=== PATIENT | female | born 1985 | race African-American/Black ===

== ENCOUNTER 2016-11-09 20:20 | Emergency (ER) | payer MEDICAID ==
[~2016-11-09] VITALS: Ht 162.6 cm; Wt 56.7 kg
[~2016-11-09 20:20] MED LIST: ALBU2.5V13 IH; AZIT500T5 PO; CALC0.5C6 PO; CALC667C4 PO; D METHORPHAN HB PO; FOLI1TAB63 PO; LOSA50TA20 PO; NIFE90TA34 PO; PROMETH HCL PO; VIT1TABL86 PO
[2016-11-10 03:12] VITALS: BP 207/138
== END 2016-11-10 03:31 | disposition home or self-care (01) ==
LOC: ER 22:19
DX: M79.601 Pain in right arm (principal); Z99.2 Dependence on renal dialysis; Z79.899 Other long term (current) drug therapy; Z88.6 Allergy status to analgesic agent; Z88.1 Allergy status to other antibiotic agents; I12.9 Hypertensive chronic kidney disease with stage 1 through stage 4 chronic kidney disease, or unspecified chronic kidney disease; N18.9 Chronic kidney disease, unspecified
CPT/HCPCS: 93971; 99284; Z7610

== ENCOUNTER 2016-12-13 06:52 | Emergency (ER) | payer MEDICAID ==
[~2016-12-13] VITALS: Ht 160 cm; Wt 56.1 kg
[2016-12-13] MEDS ORDERED: NIFEDIPINE XL 90MG TAB PO ONE (08:00)
[2016-12-13] MEDS ORDERED: CLONIDINE 0.1MG TABLET PO ONE (08:00)
[2016-12-13] MEDS ORDERED: LOSARTAN POTASSIUM 100 MG TABLET PO ONE (08:00)
[2016-12-13 08:10] LABS: EOSINOPHILS % 3.2 % (0.0-5.0); HEMATOCRIT. 28.4 % (36.0-48.0); HEMOGLOBIN. 9.8 g/dL (12.0-16.0); MEAN CORPUSCULAR HEMOGLOBIN 29.7 pg (28.0-32.0); MEAN CORPUSCULAR HGB CONC 34.6 g/dL (31.0-37.0); MEAN CORPUSCULAR VOLUME 85.9 fL (81.0-99.0); MEAN PLATELET VOLUME 6.9 fl (7.4-10.4); MONOCYTES % 6.6 % (2.0-8.0); NEUTROPHILS % 72.2 % (40.0-76.0); PLATELET 89 x1000/uL (130-400); RED CELL DISTRIBUTION WIDTH 18.7 % (11.6-14.6); WHITE BLOOD COUNT 5.3 x1000/uL (4.5-11.0)
[2016-12-13 08:20] LABS: CHLORIDE 100 mEq/L (98-107); INDEX HEMOLYSI 1 (1-3); INDEX ICTERIC 1 (1-4); INDEX LIPEMIC 1 (1-3)
[2016-12-13 08:28] LABS: ALANINE AMINOTRANSFERASE 16 IU/L (13-61); ALBUMIN 3.4 g/dL (3.4-5.0); ANION GAP 12; CALCIUM 8.4 mg/dL (8.5-10.1); CARBON DIOXIDE 32 mEq/L (21-32); UREA NITROGEN BLOOD 16 mg/dL (7-21); eGFR 7 mL/min (>60)
[2016-12-13] MEDS ORDERED: NIFEDIPINE XL 90MG TAB PO NR (08:30)
[2016-12-13] MEDS: LOSARTAN POTASSIUM 100 MG TABLET PO NR ×2 (08:33→08:34)
[2016-12-13 09:30] VITALS: BP 196/136
== END 2016-12-13 11:15 | disposition home or self-care (01) ==
LOC: ER 07:27
DX: I12.0 Hypertensive chronic kidney disease with stage 5 chronic kidney disease or end stage renal disease (principal); N18.6 End stage renal disease; Z99.2 Dependence on renal dialysis; Z90.49 Acquired absence of other specified parts of digestive tract; Z98.890 Other specified postprocedural states; Z88.6 Allergy status to analgesic agent; Z88.8 Allergy status to other drugs, medicaments and biological substances; Z88.1 Allergy status to other antibiotic agents
CPT/HCPCS: 36415; 71010; 80053; 85025; 99285; Z7610

== ENCOUNTER 2016-12-21 22:59 | Emergency (ER) | payer MEDICAID ==
[~2016-12-21] VITALS: Ht 160 cm; Wt 56.0 kg
[2016-12-22 01:16] LABS: BASOPHILS % 0.6 % (0.0-2.0); EOSINOPHILS % 2.9 % (0.0-5.0); HEMATOCRIT. 38.2 % (36.0-48.0); HEMOGLOBIN. 12.9 g/dL (12.0-16.0); LYMPHOCYTES % 18.7 % (20.0-50.0); MEAN CORPUSCULAR HEMOGLOBIN 29.7 pg (28.0-32.0); MEAN CORPUSCULAR HGB CONC 33.8 g/dL (31.0-37.0); MEAN CORPUSCULAR VOLUME 87.9 fL (81.0-99.0); MEAN PLATELET VOLUME 6.3 fl (7.4-10.4); NEUTROPHILS % 71.8 % (40.0-76.0); PLATELET 191 x1000/uL (130-400); RED BLOOD CELL COUNT 4.34 mill/uL (4.2-5.4); RED CELL DISTRIBUTION WIDTH 19.8 % (11.6-14.6)
[2016-12-22 01:34] LABS: ALANINE AMINOTRANSFERASE 13 IU/L (13-61); ALBUMIN 3.9 g/dL (3.4-5.0); ANION GAP 14; CALCIUM 9.3 mg/dL (8.5-10.1); CARBON DIOXIDE 31 mEq/L (21-32); CHLORIDE 94 mEq/L (98-107); INDEX HEMOLYSI 2 (1-3); INDEX ICTERIC 1 (1-4); INDEX LIPEMIC 1 (1-3); TROPONIN I < 0.02 ng/mL (0.00-0.04); UREA NITROGEN BLOOD 27 mg/dL (7-21); eGFR 4 mL/min (>60)
[2016-12-22 01:46] LABS: NT PRO B-TYPE NATRIURETIC PEP 81153 pg/mL (5-125)
[2016-12-22 02:58] VITALS: BP 189/111
== END 2016-12-22 03:05 | disposition home or self-care (01) ==
LOC: ER 23:01
DX: R07.89 Other chest pain (principal); I12.0 Hypertensive chronic kidney disease with stage 5 chronic kidney disease or end stage renal disease; N18.6 End stage renal disease; Z99.2 Dependence on renal dialysis; Z88.6 Allergy status to analgesic agent; Z79.899 Other long term (current) drug therapy
CPT/HCPCS: 36415; 71010; 80053; 83880; 84484; 85025; 93005; 93970; 99285; Z7610

== ENCOUNTER 2017-02-20 08:43 | Emergency (ER) | payer MEDICAID ==
[~2017-02-20] VITALS: Ht 162.6 cm; Wt 60.0 kg
[~2017-02-20 08:43] MED LIST changes: -AZIT500T5 PO; +CALC0.5C10 PO; -CALC0.5C6 PO; +CEPH-569 PO; +DILT180C69 PO; +KEPP500 PO; +LOSA100T14 PO; -LOSA50TA20 PO; -NIFE90TA34 PO
[2017-02-20] MEDS ORDERED: LEVETIRACETAM 1,000 MG in SODIUM CHLORIDE 0.9% 100 ML IV ONE (09:00)
[2017-02-20] MEDS ORDERED: NIFE90TA43 (09:10)
[2017-02-20] MEDS ORDERED: CLON0.1T (09:10)
[2017-02-20 09:11] LABS: BASOPHILS % 0.4 % (0.0-2.0); EOSINOPHILS % 0.5 % (0.0-5.0); HEMATOCRIT. 42.3 % (36.0-48.0); HEMOGLOBIN. 14.1 g/dL (12.0-16.0); LYMPHOCYTES % 9.9 % (20.0-50.0); MEAN CORPUSCULAR HEMOGLOBIN 28.7 pg (28.0-32.0); MEAN CORPUSCULAR VOLUME 86.3 fL (81.0-99.0); MEAN PLATELET VOLUME 7.4 fl (7.4-10.4); MONOCYTES % 6.7 % (2.0-8.0); NEUTROPHILS % 82.5 % (40.0-76.0); PLATELET 167 x1000/uL (130-400); RED BLOOD CELL COUNT 4.91 mill/uL (4.2-5.4); RED CELL DISTRIBUTION WIDTH 17.8 % (11.6-14.6)
[2017-02-20] MEDS ORDERED: DILTIAZEM HCL 180MG CAPSULE CD 24HR PO ONE (09:15)
[2017-02-20 09:27] LABS: CARBON DIOXIDE 29 mEq/L (21-32); CHLORIDE 99 mEq/L (98-107)
[2017-02-20 09:32] LABS: HCG SCREEN NEGATIVE
[2017-02-20] MEDS ORDERED: ACETAMINOPHEN WITH CODEINE 300/30MG TABLET PO ONE (10:30)
[2017-02-20 11:43] VITALS: BP 200/126
== END 2017-02-20 11:46 | disposition home or self-care (01) ==
LOC: ER 09:20
DX: S00.83XA Contusion of other part of head, initial encounter (principal); R56.9 Unspecified convulsions; I12.0 Hypertensive chronic kidney disease with stage 5 chronic kidney disease or end stage renal disease; F12.10 Cannabis abuse, uncomplicated; N18.6 End stage renal disease; Z99.2 Dependence on renal dialysis; Z88.6 Allergy status to analgesic agent; Z88.4 Allergy status to anesthetic agent; Z88.1 Allergy status to other antibiotic agents; W22.8XXA Striking against or struck by other objects, initial encounter; Y93.89 Activity, other specified; Y92.89 Other specified places as the place of occurrence of the external cause; Y99.8 Other external cause status
CPT/HCPCS: 36415; 70450; 70486; 80053; 84703; 85025; 96365; 99285; J1953; J7050

== ENCOUNTER 2017-03-04 10:37 | Emergency (ER) | payer MEDICAID ==
[~2017-03-04] VITALS: Ht 160 cm; Wt 56.0 kg
[~2017-03-04 10:37] MED LIST changes: +CLON0.1T; +NIFE90TA43
[2017-03-04] MEDS ORDERED: KETOROLAC 60MG/2ML VIAL IM STA (11:18)
[2017-03-04 12:10] LABS: BASOPHILS % 0.7 % (0.0-2.0); EOSINOPHILS % 2.5 % (0.0-5.0); HEMATOCRIT. 34.5 % (36.0-48.0); HEMOGLOBIN. 11.5 g/dL (12.0-16.0); LYMPHOCYTES % 16.8 % (20.0-50.0); MEAN CORPUSCULAR HEMOGLOBIN 28.9 pg (28.0-32.0); MEAN CORPUSCULAR VOLUME 86.6 fL (81.0-99.0); MEAN PLATELET VOLUME 7.7 fl (7.4-10.4); MONOCYTES % 7.1 % (2.0-8.0); NEUTROPHILS % 72.9 % (40.0-76.0); PLATELET 131 x1000/uL (130-400); RED BLOOD CELL COUNT 3.99 mill/uL (4.2-5.4); RED CELL DISTRIBUTION WIDTH 17.9 % (11.6-14.6)
[2017-03-04 12:25] LABS: HCG SCREEN NEGATIVE
[2017-03-04 15:07] VITALS: BP 171/63
== END 2017-03-04 15:08 | disposition home or self-care (01) ==
LOC: ER 12:18
DX: R10.9 Unspecified abdominal pain (principal); I12.0 Hypertensive chronic kidney disease with stage 5 chronic kidney disease or end stage renal disease; D53.9 Nutritional anemia, unspecified; N18.6 End stage renal disease; Z99.2 Dependence on renal dialysis; Z90.49 Acquired absence of other specified parts of digestive tract; Z88.6 Allergy status to analgesic agent; Z79.899 Other long term (current) drug therapy; Z88.1 Allergy status to other antibiotic agents
CPT/HCPCS: 36415; 71010; 74176; 80048; 84703; 85025; 99285

== ENCOUNTER 2017-04-20 03:28 | Inpatient (IN) | payer MEDICAID ==
[~2017-04-20] VITALS: Ht 162.6 cm; Wt 520.3 kg
[~2017-04-20 03:28] MED LIST changes: -CLON0.1T; +CLON0.1T PO; -NIFE90TA43; +NIFE90TA43 PO
[2017-04-20] MEDS ORDERED: FENTANYL CITRATE/PF 50MCG/ML 2ML VIAL IV ONE (04:00)
[2017-04-20] MEDS ORDERED: ASPIRIN 81MG TABLET PO ONE (04:00)
[2017-04-20] MEDS ORDERED: LABETALOL HCL 20MG/4ML CARPUJECT IV ONE (04:00)
[2017-04-20] MEDS ORDERED: LABETALOL 5MG/ML SYR 20 MG/4 ML SYRINGE IV SCH (04:17)
[2017-04-20] MEDS ORDERED: ONDANSETRON HCL 4MG/2ML VIAL IV STA ×2 (04:33→04:34)
[2017-04-20 04:42] LABS: HEMATOCRIT. 37.9 % (36.0-48.0); HEMOGLOBIN. 12.2 g/dL (12.0-16.0); MEAN CORPUSCULAR VOLUME 89.8 fL (81.0-99.0); MEAN PLATELET VOLUME 8.9 fl (7.4-10.4); PLATELET 240 x1000/uL (130-400); RED BLOOD CELL COUNT 4.22 mill/uL (4.2-5.4); RED CELL DISTRIBUTION WIDTH 21.8 % (11.6-14.6)
[2017-04-20 04:46] LABS: HCG SCREEN NEGATIVE
[2017-04-20] MEDS: ONDANSETRON 4MG ODT PO STA ×2 (04:47→04:51)
[2017-04-20 04:55] LABS: CARBON DIOXIDE 28 mEq/L (21-32); CHLORIDE 104 mEq/L (98-107); ETHANOL BLOOD < 10 mg/dL
[2017-04-20 04:56] LABS: INR 1.1; PARTIAL THROMBOPLASTIN TIME 25.9 sec (23.4-31.0); PROTHROMBIN TIME 10.9 sec (9.4-11.6)
[2017-04-20] MEDS ORDERED: MORPHINE SULFATE 2 MG/ML CPJ (NOT FOR IM USE) IV STA (05:00)
[2017-04-20] MEDS ORDERED: MORPHINE SULFATE 4 MG/ML CPJ (NOT FOR IM USE) IV SCH (05:45)
[2017-04-20 06:33] LABS: ATYPICAL LYMPHOCYTES 2; PLATELET ESTIMATE NORMAL
[2017-04-20] MEDS ORDERED: HYDRALAZINE 20MG/ML VIAL IV ONE (08:30)
[2017-04-20 08:45] VITALS: BP 168/113
[2017-04-20 09:14] VITALS: BP 168/113
[2017-04-20] MEDS ORDERED: ONDANSETRON HCL 4MG/2ML VIAL IV PRN (10:00)
[2017-04-20] MEDS ORDERED: MORPHINE SULFATE 4 MG/ML CPJ (NOT FOR IM USE) IV PRN (10:00)
[2017-04-20 12:00] VITALS: BP 162/118
[2017-04-20] MEDS: LEVETIRACETAM 500 MG in SODIUM CHLORIDE 0.9% 100 ML IV SCH (14:14)
[2017-04-20] MEDS: METOCLOPRAMIDE HCL 10MG/2ML VIAL IV PRN ×2 (14:14→23:47)
[2017-04-20] MEDS: HYDRALAZINE 20MG/ML VIAL IV PRN ×2 (14:14→20:19)
[2017-04-20] MEDS: ACETAMINOPHEN 325MG TABLET PO PRN ×2 (15:59→23:53)
[2017-04-20 20:00] VITALS: BP 190/108
[2017-04-20] MEDS: CLONIDINE 0.1MG TABLET PO PRN (23:47)
[2017-04-21] VITALS: BP 173/112
[2017-04-21] MEDS: LEVETIRACETAM 500 MG in SODIUM CHLORIDE 0.9% 100 ML IV SCH (00:35)
[2017-04-21 02:25] LABS: CLARITY URINE CLOUDY (CLEAR); COLOR URINE RED (YELLOW); GLUCOSE URINE 1+ (NEGATIVE); KETONES URINE NEGATIVE (NEGATIVE); LEUKOCYTE ESTERASE URINE 1+ (NEGATIVE); NITRITE URINE POSITIVE (NEGATIVE); OCCULT BLOOD URINE 3+ (NEGATIVE); PH URINE >=9.0 (4.5-8.0); PROTEIN URINE 3+ (NEGATIVE); SPECIFIC GRAVITY URINE 1.011 (1.005-1.030); UROBILINOGEN URINE 0.2 E.U./dL (0.2-1.0)
[2017-04-21 02:51] LABS: *AMPHETAMINES SCREEN URINE NEGATIVE (NEGATIVE); *BARBITURATES SCREEN URINE NEGATIVE (NEGATIVE); *BENZODIAZEPINES SCREEN URINE NEGATIVE (NEGATIVE); *COCAINE SCREEN URINE NEGATIVE (NEGATIVE); CANNABINOID URINE SCREEN NEGATIVE (NEGATIVE); METHADONE URINE SCREEN NEGATIVE (NEGATIVE); PHENCYCLIDINE URINE SCREEN NEGATIVE (NEGATIVE)
[2017-04-21 03:08] LABS: OPIATES URINE SCREEN PRESUMTIVE POSITIVE (NEGATIVE)
[2017-04-21 04:00] VITALS: BP 145/98
[2017-04-21 06:06] LABS: BASOPHILS % 0.7 % (0.0-2.0); EOSINOPHILS % 0.6 % (0.0-5.0); HEMATOCRIT. 30.6 % (36.0-48.0); LYMPHOCYTES % 16.5 % (20.0-50.0); MEAN CORPUSCULAR HEMOGLOBIN 29.3 pg (28.0-32.0); MEAN CORPUSCULAR VOLUME 89.7 fL (81.0-99.0); MONOCYTES % 8.3 % (2.0-8.0); NEUTROPHILS % 73.9 % (40.0-76.0); PLATELET 206 x1000/uL (130-400); RED BLOOD CELL COUNT 3.42 mill/uL (4.2-5.4); RED CELL DISTRIBUTION WIDTH 21.3 % (11.6-14.6)
[2017-04-21 08:00] VITALS: BP 184/125
[2017-04-21] MEDS: LOSARTAN POTASSIUM 100 MG TABLET PO SCH (08:58)
[2017-04-21] MEDS: NIFEDIPINE XL 90MG TAB PO SCH (08:58)
[2017-04-21] MEDS: CLONIDINE 0.1MG TABLET PO PRN ×2 (11:19→17:28)
[2017-04-21 14:00] VITALS: BP 180/110
[2017-04-21] MEDS: CLONIDINE 0.2MG TABLET PO SCH ×2 (14:00→21:04)
[2017-04-21] MEDS: ACETAMINOPHEN 325MG TABLET PO PRN (17:27)
[2017-04-21 20:00] VITALS: BP 155/109
[2017-04-21] MEDS: LEVETIRACETAM 500MG TABLET PO SCH (21:04)
[2017-04-21] MEDS: HYDRALAZINE 20MG/ML VIAL IV PRN (23:49)
[2017-04-21 23:52] VITALS: BP 166/120
[2017-04-22] VITALS (7 sets, daily range): BP systolic 122–179; BP diastolic 78–128
[2017-04-22] MEDS: CLONIDINE 0.2MG TABLET PO SCH ×3 (05:25→21:27)
[2017-04-22] MEDS: ACETAMINOPHEN 325MG TABLET PO PRN (05:29)
[2017-04-22 06:54] LABS: BASOPHILS % 0.8 % (0.0-2.0); EOSINOPHILS % 3.1 % (0.0-5.0); HEMATOCRIT. 27.7 % (36.0-48.0); HEMOGLOBIN. 9.1 g/dL (12.0-16.0); LYMPHOCYTES % 16.3 % (20.0-50.0); MEAN CORPUSCULAR HEMOGLOBIN 29.7 pg (28.0-32.0); MEAN CORPUSCULAR VOLUME 89.9 fL (81.0-99.0); MEAN PLATELET VOLUME 8.8 fl (7.4-10.4); MONOCYTES % 7.7 % (2.0-8.0); NEUTROPHILS % 72.1 % (40.0-76.0); PLATELET 166 x1000/uL (130-400); RED BLOOD CELL COUNT 3.08 mill/uL (4.2-5.4)
[2017-04-22] MEDS: LEVETIRACETAM 500MG TABLET PO SCH ×2 (08:37→21:35)
[2017-04-22] MEDS: NIFEDIPINE XL 90MG TAB PO SCH (08:37)
[2017-04-22] MEDS: LOSARTAN POTASSIUM 100 MG TABLET PO SCH (08:37)
[2017-04-22] MEDS ORDERED: DIPHENHYDRAMINE 50MG/ML VIAL ONE (10:30)
[2017-04-22] MEDS ORDERED: DIPHENHYDRAMINE 50MG/ML VIAL IV ONE (10:45)
[2017-04-22] MEDS: CLONIDINE 0.1MG TABLET PO PRN (11:26)
[2017-04-22] MEDS: SENNOSIDES/DOCUSATE SOD 8.6/50MG TABLET PO SCH (14:16)
[2017-04-22] MEDS: CEFTRIAXONE 1 G PREMIX 50 ML IV SCH (21:35)
[2017-04-23] VITALS: BP 161/111
[2017-04-23] MEDS: CLONIDINE 0.1MG TABLET PO PRN (00:24)
[2017-04-23 04:00] VITALS: BP 142/99
[2017-04-23] MEDS: CLONIDINE 0.2MG TABLET PO SCH ×3 (05:27→20:49)
[2017-04-23 07:00] LABS: BASOPHILS % 0.7 % (0.0-2.0); EOSINOPHILS % 3.3 % (0.0-5.0); HEMATOCRIT. 29.6 % (36.0-48.0); HEMOGLOBIN. 9.7 g/dL (12.0-16.0); LYMPHOCYTES % 25.3 % (20.0-50.0); MEAN CORPUSCULAR HEMOGLOBIN 29.8 pg (28.0-32.0); MEAN CORPUSCULAR VOLUME 90.5 fL (81.0-99.0); MEAN PLATELET VOLUME 8.7 fl (7.4-10.4); MONOCYTES % 7.4 % (2.0-8.0); NEUTROPHILS % 63.3 % (40.0-76.0); PLATELET 183 x1000/uL (130-400); RED BLOOD CELL COUNT 3.27 mill/uL (4.2-5.4); RED CELL DISTRIBUTION WIDTH 20.8 % (11.6-14.6)
[2017-04-23] MEDS: NIFEDIPINE XL 90MG TAB PO SCH (08:20)
[2017-04-23] MEDS: LEVETIRACETAM 500MG TABLET PO SCH ×2 (08:20→21:41)
[2017-04-23] MEDS: SENNOSIDES/DOCUSATE SOD 8.6/50MG TABLET PO SCH (08:20)
[2017-04-23] MEDS: LOSARTAN POTASSIUM 100 MG TABLET PO SCH (08:20)
[2017-04-23 11:40] VITALS: BP 177/144
[2017-04-23 13:12] LABS: CA 27.29 12.1 U/mL (0.0-38.6)
[2017-04-23] MEDS ORDERED: HYDRALAZINE 20MG/ML VIAL IV PRN (13:45)
[2017-04-23] MEDS ORDERED: HEPARIN SODIUM 1,000 UNIT/1ML VIAL IV NR (16:00)
[2017-04-23] MEDS: HYDRALAZINE HCL 25MG TABLET PO SCH ×2 (16:00→20:48)
[2017-04-23 16:30] VITALS: BP 220/140
[2017-04-23] MEDS: NIFEDIPINE XL 60MG TAB PO SCH (18:00)
[2017-04-23 18:58] VITALS: BP 150/108
[2017-04-23 20:26] VITALS: BP 146/102
[2017-04-23] MEDS: CEFTRIAXONE 1 G PREMIX 50 ML IV SCH (20:47)
[2017-04-24] VITALS: BP 130/80
[2017-04-24 04:00] VITALS: BP 166/89
[2017-04-24] MEDS: HYDRALAZINE HCL 25MG TABLET PO SCH (05:59)
[2017-04-24] MEDS: CLONIDINE 0.2MG TABLET PO SCH ×2 (06:00→13:03)
[2017-04-24 07:29] LABS: BASOPHILS % 0.9 % (0.0-2.0); EOSINOPHILS % 3.4 % (0.0-5.0); HEMOGLOBIN. 9.9 g/dL (12.0-16.0); LYMPHOCYTES % 22.8 % (20.0-50.0); MEAN CORPUSCULAR HEMOGLOBIN 29.3 pg (28.0-32.0); MEAN CORPUSCULAR VOLUME 88.6 fL (81.0-99.0); MEAN PLATELET VOLUME 8.1 fl (7.4-10.4); MONOCYTES % 8.5 % (2.0-8.0); NEUTROPHILS % 64.4 % (40.0-76.0); PLATELET 158 x1000/uL (130-400); RED BLOOD CELL COUNT 3.39 mill/uL (4.2-5.4)
[2017-04-24 08:00] VITALS: BP 175/122
[2017-04-24 08:29] LABS: TROPONIN I 0.05 ng/mL (0.00-0.04)
[2017-04-24] MEDS: SENNOSIDES/DOCUSATE SOD 8.6/50MG TABLET PO SCH (08:46)
[2017-04-24] MEDS: LEVETIRACETAM 500MG TABLET PO SCH (08:46)
[2017-04-24] MEDS: NIFEDIPINE XL 60MG TAB PO SCH (08:46)
[2017-04-24] MEDS: LOSARTAN POTASSIUM 100 MG TABLET PO SCH (08:47)
[2017-04-24 09:45] VITALS: BP 147/100
[2017-04-24 12:00] VITALS: BP 146/94
[2017-04-24 12:36] VITALS: BP 146/94
[2017-04-24] MEDS ORDERED: HYDRALAZINE HCL 50MG TABLET PO SCH (14:00)
== END 2017-04-24 13:32 | disposition home or self-care (01) | DRG 264 ==
LOC: ER 03:28 → 7WST 04:17 → ENRESERV 07:12
PROVIDERS: ADMIT Family Medicine; ATTEND Internal Medicine
PROC: 5A1D60Z (ICD-10-PCS; principal; 2017-04-20)
PROC: 0W9G3ZX Drainage of Peritoneal Cavity, Percutaneous Approach, Diagnostic (ICD-10-PCS; 2017-04-22)
DX: R18.8 Other ascites (principal); N18.6 End stage renal disease; I12.0 Hypertensive chronic kidney disease with stage 5 chronic kidney disease or end stage renal disease; M32.9 Systemic lupus erythematosus, unspecified; N25.81 Secondary hyperparathyroidism of renal origin; E83.51 Hypocalcemia; N39.0 Urinary tract infection, site not specified; D63.8 Anemia in other chronic diseases classified elsewhere; D72.829 Elevated white blood cell count, unspecified; Z99.2 Dependence on renal dialysis; F12.90 Cannabis use, unspecified, uncomplicated; G40.909 Epilepsy, unspecified, not intractable, without status epilepticus; N85.8 Other specified noninflammatory disorders of uterus; N83.9 Noninflammatory disorder of ovary, fallopian tube and broad ligament, unspecified; Z79.899 Other long term (current) drug therapy; Z88.8 Allergy status to other drugs, medicaments and biological substances; Z84.89 Family history of other specified conditions; Z98.51 Tubal ligation status; Z90.49 Acquired absence of other specified parts of digestive tract
CPT/HCPCS: 36415; 49083; 71010; 74176; 76705; 76856; 80048; 80051; 80053; 80061; 80305; 81001; 82962; 83605; 83690; 83735; 84484; 84702; 84703; 85025; 85610; 85730; 86300; 86301; 86304; 87040; 87070; 87086; 87205; 88108; 88312; 89050; 93005; 96374; 96375; 96376; 99285; G0482; J0360; J0696; J1200; J1644; J1953; J2270; J2405; J2765; J3010; J3490; J7030; J7050; Q0162

== ENCOUNTER 2017-05-20 22:47 | Observation (INO) | payer MEDICAID ==
[~2017-05-20] VITALS: Ht 160 cm; Wt 54.4 kg
[~2017-05-20 22:47] MED LIST changes: -ALBU2.5V13 IH; -CALC0.5C10 PO; -CEPH-569 PO; -D METHORPHAN HB PO; -DILT180C69 PO; -PROMETH HCL PO; -VIT1TABL86 PO
[2017-05-20] MEDS ORDERED: CLONIDINE 0.1MG TABLET PO ONE (23:30)
[2017-05-20 23:51] LABS: BASOPHILS % 0.6 % (0.0-2.0); EOSINOPHILS % 2.4 % (0.0-5.0); HEMOGLOBIN. 12.1 g/dL (12.0-16.0); LYMPHOCYTES % 12.1 % (20.0-50.0); MEAN CORPUSCULAR HEMOGLOBIN 30.3 pg (28.0-32.0); MEAN CORPUSCULAR VOLUME 92.6 fL (81.0-99.0); MEAN PLATELET VOLUME 7.7 fl (7.4-10.4); MONOCYTES % 5.6 % (2.0-8.0); NEUTROPHILS % 79.3 % (40.0-76.0); PLATELET 200 x1000/uL (130-400); RED CELL DISTRIBUTION WIDTH 19.2 % (11.6-14.6)
[2017-05-20 23:55] LABS: INR 1.1; PROTHROMBIN TIME 11.1 sec (9.4-11.6)
[2017-05-21 00:13] LABS: CARBON DIOXIDE 23 mEq/L (21-32); CHLORIDE 105 mEq/L (98-107); TROPONIN I 0.03 ng/mL (0.00-0.04)
[2017-05-21] MEDS ORDERED: FUROSEMIDE 40MG/4ML VIAL IVP ONE (00:45)
[2017-05-21 05:20] VITALS: BP 225/115
[2017-05-21] MEDS ORDERED: HYDRALAZINE (NEO) 1MG/ML IV PRN (06:00)
[2017-05-21] MEDS ORDERED: HYDRALAZINE 20MG/ML VIAL IV PRN (06:15)
[2017-05-21 08:00] VITALS: BP 194/128
[2017-05-21] MEDS ORDERED: ONDANSETRON HCL 4MG/2ML VIAL IV PRN (09:00)
[2017-05-21] MEDS: LEVETIRACETAM 500MG TABLET PO SCH ×2 (09:34→21:06)
[2017-05-21] MEDS: NIFEDIPINE XL 90MG TAB PO SCH (09:34)
[2017-05-21] MEDS: CLONIDINE 0.1MG TABLET PO SCH ×4 (09:34→22:43)
[2017-05-21 09:39] LABS: HEMATOCRIT. 36.8 % (36.0-48.0); HEMOGLOBIN. 12.1 g/dL (12.0-16.0); MEAN CORPUSCULAR VOLUME 91.3 fL (81.0-99.0); MEAN PLATELET VOLUME 8.7 fl (7.4-10.4); PLATELET 237 x1000/uL (130-400); RED BLOOD CELL COUNT 4.03 mill/uL (4.2-5.4); RED CELL DISTRIBUTION WIDTH 18.6 % (11.6-14.6)
[2017-05-21] MEDS ORDERED: ACETAMINOPHEN 325MG TABLET PO PRN (11:45)
[2017-05-21 11:53] VITALS: BP 183/127
[2017-05-21] MEDS: CLONIDINE 0.1MG TABLET PO NR ×2 (12:12→14:27)
[2017-05-21] MEDS: CALCIUM ACETATE 667MG CAPSULE PO SCH ×3 (12:50→19:09)
[2017-05-21] MEDS: LOSARTAN POTASSIUM 100 MG TABLET PO SCH (14:37)
[2017-05-21] MEDS: FOLIC ACID/VITAMIN B COMP W-C TABLET PO SCH (14:37)
[2017-05-21 16:00] VITALS: BP 154/100
[2017-05-21 16:59] LABS: PLATELET ESTIMATE NORMAL
[2017-05-21 20:00] VITALS: BP 160/110
[2017-05-21] MEDS: AMLODIPINE 5MG TABLET PO SCH (21:06)
[2017-05-22] VITALS (8 sets, daily range): BP systolic 127–163; BP diastolic 64–110
[2017-05-22 06:18] LABS: EOSINOPHILS % 3.2 % (0.0-5.0); HEMATOCRIT. 31.5 % (36.0-48.0); HEMOGLOBIN. 10.4 g/dL (12.0-16.0); LYMPHOCYTES % 16.2 % (20.0-50.0); MEAN CORPUSCULAR HEMOGLOBIN 30.1 pg (28.0-32.0); MEAN CORPUSCULAR VOLUME 91.2 fL (81.0-99.0); MEAN PLATELET VOLUME 8.9 fl (7.4-10.4); MONOCYTES % 7.2 % (2.0-8.0); NEUTROPHILS % 72.4 % (40.0-76.0); PLATELET 174 x1000/uL (130-400); RED BLOOD CELL COUNT 3.45 mill/uL (4.2-5.4); RED CELL DISTRIBUTION WIDTH 18.7 % (11.6-14.6)
[2017-05-22] MEDS: CLONIDINE 0.1MG TABLET PO SCH ×2 (06:52→14:00)
[2017-05-22] MEDS: CALCIUM ACETATE 667MG CAPSULE PO SCH ×3 (07:50→18:45)
[2017-05-22] MEDS: FOLIC ACID/VITAMIN B COMP W-C TABLET PO SCH (09:51)
[2017-05-22] MEDS: LEVETIRACETAM 500MG TABLET PO SCH (09:53)
[2017-05-22] MEDS: NIFEDIPINE XL 90MG TAB PO SCH (09:53)
[2017-05-22] MEDS: AMLODIPINE 5MG TABLET PO SCH (09:54)
[2017-05-22] MEDS: LOSARTAN POTASSIUM 100 MG TABLET PO SCH (09:54)
== END 2017-05-22 19:00 | disposition home or self-care (01) ==
LOC: ER 23:38 → INTOOBSV 05-21 00:42 → 6WST 05-21 00:42 → ENRESERV 05-21 04:17
PROVIDERS: ADMIT Internal Medicine; ATTEND Internal Medicine
DX: J96.00 Acute respiratory failure, unspecified whether with hypoxia or hypercapnia (principal); E87.70 Fluid overload, unspecified; I13.2 Hypertensive heart and chronic kidney disease with heart failure and with stage 5 chronic kidney disease, or end stage renal disease; N18.6 End stage renal disease; I50.33 Acute on chronic diastolic (congestive) heart failure; J90 Pleural effusion, not elsewhere classified; E87.5 Hyperkalemia; M32.9 Systemic lupus erythematosus, unspecified; I27.20 Pulmonary hypertension, unspecified; I08.3 Combined rheumatic disorders of mitral, aortic and tricuspid valves; E46 Unspecified protein-calorie malnutrition; E88.09 Other disorders of plasma-protein metabolism, not elsewhere classified; R18.8 Other ascites; D72.829 Elevated white blood cell count, unspecified; D64.9 Anemia, unspecified; J45.909 Unspecified asthma, uncomplicated; F12.90 Cannabis use, unspecified, uncomplicated; F17.200 Nicotine dependence, unspecified, uncomplicated; Z79.899 Other long term (current) drug therapy; Z82.49 Family history of ischemic heart disease and other diseases of the circulatory system; Z99.2 Dependence on renal dialysis
CPT/HCPCS: 36415; 71010; 80048; 80053; 83880; 84484; 85025; 85610; 87040; 93005; 93970; 96374; 96375; 99285; G0378; J0360; J1940; J7030

== ENCOUNTER 2017-07-31 19:14 | Inpatient (IN) | payer MEDICAID ==
[~2017-07-31] VITALS: Ht 162.6 cm; Wt 47.6 kg
[2017-07-31 23:38] LABS: CHLORIDE 100 mEq/L (98-107)
[2017-07-31 23:43] LABS: BASOPHILS % 0.6 % (0.0-2.0); EOSINOPHILS % 0.7 % (0.0-5.0); HEMATOCRIT. 42.9 % (36.0-48.0); HEMOGLOBIN. 13.6 g/dL (12.0-16.0); LYMPHOCYTES % 8.7 % (20.0-50.0); MEAN CORPUSCULAR VOLUME 88.6 fL (81.0-99.0); MEAN PLATELET VOLUME 9.4 fl (7.4-10.4); MONOCYTES % 7.6 % (2.0-8.0); NEUTROPHILS % 82.4 % (40.0-76.0); PLATELET 332 x1000/uL (130-400); RED BLOOD CELL COUNT 4.85 mill/uL (4.2-5.4); RED CELL DISTRIBUTION WIDTH 15.5 % (11.6-14.6)
[2017-07-31 23:44] LABS: INR 1.1; PROTHROMBIN TIME 10.9 sec (9.4-11.6)
[2017-07-31 23:49] LABS: CARBON DIOXIDE 27 mEq/L (21-32)
[2017-08-01 00:06] LABS: HCG SCREEN NEGATIVE
[2017-08-01] MEDS ORDERED: HYDRALAZINE 20MG/ML VIAL IV ONE (00:15)
[2017-08-01] MEDS ORDERED: MORPHINE SULFATE 4 MG/ML CPJ (NOT FOR IM USE) IV ONE (01:15)
[2017-08-01] MEDS ORDERED: MORPHINE SULFATE 10 MG/ML CPJ IV SCH (02:00)
[2017-08-01] MEDS ORDERED: MORPHINE SULFATE 10 MG/ML CPJ IV ONE (02:00)
[2017-08-01] MEDS ORDERED: ONDANSETRON HCL 4MG/2ML VIAL IV ONE (02:15)
[2017-08-01] MEDS ORDERED: HYDRALAZINE 20MG/ML VIAL IV NR (11:45)
[2017-08-01 13:00] VITALS: BP 190/127
[2017-08-01] MEDS ORDERED: CLONIDINE 0.1MG TABLET PO PRN (13:45)
[2017-08-01] MEDS ORDERED: MAGNESIUM/ALUMINUM HYDROXIDE/SIMETHICONE 30ML UDC PO PRN (13:45)
[2017-08-01] MEDS ORDERED: HYDRALAZINE 20MG/ML VIAL IV PRN (13:45)
[2017-08-01] MEDS ORDERED: ONDANSETRON HCL 4MG/2ML VIAL IV PRN (13:45)
[2017-08-01] MEDS ORDERED: CEFTRIAXONE 1 G PREMIX 50 ML IV SCH ×2 (13:45→16:30)
[2017-08-01] MEDS ORDERED: IPRATROPIUM/ALBUTEROL 0.5-3(2.5)MG/3ML NEB INH PRN (13:45)
[2017-08-01] MEDS ORDERED: ACETAMINOPHEN 325MG TABLET PO PRN (13:45)
[2017-08-01] MEDS ORDERED: HYDROCODONE/ACETAMINOPHEN 5/325MG TABLET PO PRN (13:45)
[2017-08-01] MEDS ORDERED: DOCUSATE SODIUM 100MG CAPSULE PO PRN (13:45)
[2017-08-01] MEDS: PANTOPRAZOLE 40MG DR TABLET PO SCH (15:22)
[2017-08-01] MEDS ORDERED: CEFTRIAXONE XX SCH (15:30)
[2017-08-01 15:41] LABS: CREATINE KINASE MB FRACTION 0.9 ng/mL (0.5-3.6); TROPONIN I 0.02 ng/mL (0.00-0.04)
[2017-08-01 15:58] VITALS: BP 216/150
[2017-08-01 16:30] VITALS: BP 200/100
[2017-08-01] MEDS: CLONIDINE 0.1MG TABLET PO SCH (17:00)
[2017-08-01] MEDS: CALCIUM ACETATE 667MG CAPSULE PO SCH (17:00)
[2017-08-01] MEDS: LOSARTAN POTASSIUM 100 MG TABLET PO SCH (17:00)
[2017-08-01] MEDS: METRONIDAZOLE 500 MG PREMIX 100 ML IV SCH (17:00)
[2017-08-01] MEDS: NIFEDIPINE XL 90MG TAB PO SCH (17:00)
[2017-08-01] MEDS: FOLIC ACID/VITAMIN B COMP W-C TABLET PO SCH (17:00)
[2017-08-01] MEDS: LEVETIRACETAM 500MG TABLET PO SCH (17:00)
[2017-08-01 18:43] VITALS: BP 187/130
[2017-08-01 20:00] VITALS: BP 155/78
[2017-08-02] VITALS: BP 167/112
[2017-08-02] MEDS: CLONIDINE 0.1MG TABLET PO SCH ×2 (01:08→10:08)
[2017-08-02] MEDS: METRONIDAZOLE 500 MG PREMIX 100 ML IV SCH ×2 (01:08→09:36)
[2017-08-02 01:43] LABS: CREATINE KINASE MB FRACTION 0.9 ng/mL (0.5-3.6); TROPONIN I 0.03 ng/mL (0.00-0.04)
[2017-08-02 04:00] VITALS: BP 157/100
[2017-08-02] MEDS: PANTOPRAZOLE 40MG DR TABLET PO SCH (06:24)
[2017-08-02 07:49] VITALS: BP 157/109
[2017-08-02 09:40] LABS: BASOPHILS % 1.1 % (0.0-2.0); EOSINOPHILS % 1.6 % (0.0-5.0); HEMATOCRIT. 38.4 % (36.0-48.0); HEMOGLOBIN. 12.4 g/dL (12.0-16.0); LYMPHOCYTES % 9.7 % (20.0-50.0); MEAN CORPUSCULAR HEMOGLOBIN 28.3 pg (28.0-32.0); MEAN PLATELET VOLUME 9.8 fl (7.4-10.4); MONOCYTES % 8.5 % (2.0-8.0); NEUTROPHILS % 79.1 % (40.0-76.0); PLATELET 318 x1000/uL (130-400); RED BLOOD CELL COUNT 4.37 mill/uL (4.2-5.4); RED CELL DISTRIBUTION WIDTH 15.7 % (11.6-14.6)
[2017-08-02] MEDS: CALCIUM ACETATE 667MG CAPSULE PO SCH (10:08)
[2017-08-02] MEDS: NIFEDIPINE XL 90MG TAB PO SCH (10:08)
[2017-08-02] MEDS: FOLIC ACID/VITAMIN B COMP W-C TABLET PO SCH (10:08)
[2017-08-02] MEDS: LEVETIRACETAM 500MG TABLET PO SCH (10:08)
[2017-08-02] MEDS: LOSARTAN POTASSIUM 100 MG TABLET PO SCH (10:09)
[2017-08-02] MEDS ORDERED: METO-396 PO (11:05)
[2017-08-02] MEDS ORDERED: LEVO250T2 PO (11:05)
[2017-08-02] MEDS ORDERED: METR500T4 PO (11:05)
[2017-08-02 11:46] VITALS: BP 145/101
[2017-08-02 11:51] VITALS: BP 140/98
== END 2017-08-02 14:20 | disposition home or self-care (01) | DRG 249 ==
LOC: ER 22:04 → 6WST 08-01 02:09 → CANRESERV 08-01 07:11 → ENRESERV 08-01 07:11 → CANRESERV 08-01 10:05 → ENRESERV 08-01 10:05
PROVIDERS: ADMIT Internal Medicine; ATTEND Internal Medicine
PROC: 5A1D70Z Performance of Urinary Filtration, Intermittent, Less than 6 Hours Per Day (ICD-10-PCS; principal; 2017-08-01)
DX: K52.9 Noninfective gastroenteritis and colitis, unspecified (principal); N18.6 End stage renal disease; R18.8 Other ascites; I12.0 Hypertensive chronic kidney disease with stage 5 chronic kidney disease or end stage renal disease; E87.70 Fluid overload, unspecified; E87.5 Hyperkalemia; D63.1 Anemia in chronic kidney disease; F12.90 Cannabis use, unspecified, uncomplicated; G40.909 Epilepsy, unspecified, not intractable, without status epilepticus; D64.9 Anemia, unspecified; Z90.49 Acquired absence of other specified parts of digestive tract; Z90.81 Acquired absence of spleen; Z99.2 Dependence on renal dialysis; Z88.4 Allergy status to anesthetic agent; Z88.1 Allergy status to other antibiotic agents; Z88.8 Allergy status to other drugs, medicaments and biological substances; Z79.899 Other long term (current) drug therapy
CPT/HCPCS: 36415; 74176; 80048; 80053; 80061; 82550; 82553; 83605; 83690; 84443; 84484; 84703; 85025; 85610; 87040; 96374; 96375; 99285; J0360; J0696; J2270; J2405; J3490; J7030; J7050

== ENCOUNTER 2018-01-13 16:31 | Emergency (ER) | payer MEDICAID ==
[~2018-01-13] VITALS: Ht 162.6 cm; Wt 51.0 kg
[~2018-01-13 16:31] MED LIST changes: +LEVO250T2 PO; +METO-396 PO; +METR500T4 PO
[2018-01-13 16:41] VITALS: BP 171/114
== END 2018-01-13 23:37 | disposition left against medical advice (07) ==
LOC: ER 16:31
DX: S40.822A Blister (nonthermal) of left upper arm, initial encounter (principal); I13.2 Hypertensive heart and chronic kidney disease with heart failure and with stage 5 chronic kidney disease, or end stage renal disease; N18.6 End stage renal disease; I50.9 Heart failure, unspecified; Z99.2 Dependence on renal dialysis; X58.XXXA Exposure to other specified factors, initial encounter; Y93.89 Activity, other specified; Y92.89 Other specified places as the place of occurrence of the external cause; Y99.8 Other external cause status
CPT/HCPCS: 99281

== ENCOUNTER 2018-06-10 14:17 | Emergency (ER) | payer MEDICAID ==
[~2018-06-10] VITALS: Ht 160 cm; Wt 56.7 kg
[~2018-06-10 14:17] MED LIST changes: +METR-218 PO; -METR500T4 PO
[2018-06-10 16:10] LABS: BASOPHILS % 1.3 % (0.0-2.0); EOSINOPHILS % 4.8 % (0.0-5.0); HEMATOCRIT. 34.2 % (36.0-48.0); HEMOGLOBIN. 11.2 g/dL (12.0-16.0); LYMPHOCYTES % 17.2 % (20.0-50.0); MEAN CORPUSCULAR VOLUME 94.9 fL (81.0-99.0); MEAN PLATELET VOLUME 9.9 fl (7.4-10.4); MONOCYTES % 8.9 % (2.0-8.0); NEUTROPHILS % 67.8 % (40.0-76.0); PLATELET 300 x1000/uL (130-400); RED BLOOD CELL COUNT 3.61 mill/uL (4.2-5.4); RED CELL DISTRIBUTION WIDTH 14.7 % (11.6-14.6)
[2018-06-10 16:16] LABS: PROTHROMBIN TIME 10.3 sec (9.1-11.1)
[2018-06-10 16:19] LABS: CHLORIDE 100 mEq/L (98-107)
[2018-06-10] MEDS ORDERED: INSULIN REGULAR (HUMULIN R) 300UNITS/3ML IV ONE (18:00)
[2018-06-10] MEDS ORDERED: ALBUTEROL (0.083%) 2.5MG/3ML NEB HHN ONE (18:00)
[2018-06-10] MEDS ORDERED: CALCIUM CHLORIDE 1GM/10ML SYR IV ONE (18:00)
[2018-06-10] MEDS ORDERED: DEXTROSE 50% WATER 50ML SYRINGE IV ONE (18:00)
[2018-06-10] MEDS ORDERED: SODIUM BICARBONATE 8.4% 1 MEQ/ML 50ML SYR IV ONE (18:00)
[2018-06-10 18:23] VITALS: BP 179/114
== END 2018-06-10 19:30 | disposition home or self-care (01) ==
LOC: ER 14:17 → EDBEDREQ 17:17 → EDBEDREQTM 17:17 → ER 19:30 → CANBEDREQ 20:33
DX: I12.0 Hypertensive chronic kidney disease with stage 5 chronic kidney disease or end stage renal disease (principal); T82.858A Stenosis of other vascular prosthetic devices, implants and grafts, initial encounter; I11.0 Hypertensive heart disease with heart failure; I50.9 Heart failure, unspecified; N18.9 Chronic kidney disease, unspecified; Z99.2 Dependence on renal dialysis; E87.5 Hyperkalemia; X58.XXXA Exposure to other specified factors, initial encounter; Z90.49 Acquired absence of other specified parts of digestive tract; Z90.81 Acquired absence of spleen; Z79.899 Other long term (current) drug therapy; Z88.6 Allergy status to analgesic agent; Z88.1 Allergy status to other antibiotic agents
CPT/HCPCS: 36415; 80053; 85025; 85610; 93922; 96374; 96375; 99285; J1815; J3490

== ENCOUNTER 2018-08-16 05:43 | Inpatient (IN) | payer MEDICAID ==
[~2018-08-16] VITALS: Ht 165.1 cm; Wt 59.0 kg
[2018-08-16] MEDS ORDERED: ONDANSETRON HCL 4MG/2ML INJ IV STA (07:30)
[2018-08-16] MEDS ORDERED: SODIUM CHLORIDE 0.9% 1,000 ML IV ONE (07:30)
[2018-08-16] MEDS ORDERED: MORPHINE SULFATE 4 MG/ML CPJ (NOT FOR IM USE) IV STA (07:30)
[2018-08-16 07:45] LABS: CHLORIDE 98 mEq/L (98-107); HEMATOCRIT. 38.9 % (36.0-48.0); HEMOGLOBIN. 12.8 g/dL (12.0-16.0); MEAN CORPUSCULAR HEMOGLOBIN 31.1 pg (28.0-32.0); MEAN CORPUSCULAR VOLUME 94.7 fL (81.0-99.0); MEAN PLATELET VOLUME 10.6 fl (7.4-10.4); PLATELET 455 x1000/uL (130-400); RED BLOOD CELL COUNT 4.11 mill/uL (4.2-5.4); RED CELL DISTRIBUTION WIDTH 14.9 % (11.6-14.6)
[2018-08-16 08:02] LABS: HCG SCREEN NEGATIVE
[2018-08-16 08:14] LABS: INR 1.1; PROTHROMBIN TIME 10.7 sec (9.1-11.1)
[2018-08-16] MEDS ORDERED: LABETALOL HCL 20MG/4ML CARPUJECT IV ONE (08:45)
[2018-08-16 09:37] LABS: PLATELET ESTIMATE INCREASED
[2018-08-16] MEDS ORDERED: MORPHINE SULFATE 2 MG/ML CPJ (NOT FOR IM USE) IV ONE (10:15)
[2018-08-16] MEDS ORDERED: HYDRALAZINE 20MG/ML VIAL IV PRN (10:30)
[2018-08-16] MEDS ORDERED: ONDANSETRON HCL 4MG/2ML INJ IV PRN (10:30)
[2018-08-16] MEDS ORDERED: HYDROMORPHONE HCL/PF 2MG/ML CPJ IV PRN (10:30)
[2018-08-16] MEDS ORDERED: PIPERACILLIN/TAZ 3.375G PREMIX 50 ML IV SCH ×2 (10:30→11:15)
[2018-08-16] MEDS: NIFEDIPINE XL 60MG TAB PO SCH ×2 (11:30→21:28)
[2018-08-16] MEDS: HYDRALAZINE HCL 100MG TABLET PO SCH ×2 (12:00→21:28)
[2018-08-16] MEDS: LOSARTAN POTASSIUM 100 MG TABLET PO SCH (12:00)
[2018-08-16 14:00] VITALS: BP 155/79
[2018-08-16 16:00] VITALS: BP 158/79
[2018-08-16] MEDS: LEVETIRACETAM 500MG TABLET PO SCH (17:36)
[2018-08-16 20:00] VITALS: BP 160/80
[2018-08-16] MEDS: PIPERACILLIN/TAZ 2.25G PREMIX 50 ML IV SCH (21:27)
[2018-08-17] VITALS: BP 112/70
[2018-08-17 04:00] VITALS: BP 129/71
[2018-08-17] MEDS: LINEZOLID 600 MG PREMIX 300 ML IV SCH ×2 (05:19→17:23)
[2018-08-17] MEDS: PIPERACILLIN/TAZ 2.25G PREMIX 50 ML IV SCH ×3 (05:57→21:29)
[2018-08-17] MEDS: HYDRALAZINE HCL 100MG TABLET PO SCH ×3 (05:57→21:28)
[2018-08-17 07:23] LABS: BASOPHILS % 0.9 % (0.0-2.0); EOSINOPHILS % 1.6 % (0.0-5.0); HEMATOCRIT. 29.3 % (36.0-48.0); HEMOGLOBIN. 9.8 g/dL (12.0-16.0); LYMPHOCYTES % 13.3 % (20.0-50.0); MEAN CORPUSCULAR HEMOGLOBIN 31.9 pg (28.0-32.0); MEAN CORPUSCULAR VOLUME 95.9 fL (81.0-99.0); MEAN PLATELET VOLUME 9.8 fl (7.4-10.4); MONOCYTES % 10.7 % (2.0-8.0); NEUTROPHILS % 73.5 % (40.0-76.0); PLATELET 363 x1000/uL (130-400); RED BLOOD CELL COUNT 3.06 mill/uL (4.2-5.4); RED CELL DISTRIBUTION WIDTH 15.1 % (11.6-14.6)
[2018-08-17 08:00] VITALS: BP 140/74
[2018-08-17] MEDS: LEVETIRACETAM 500MG TABLET PO SCH ×2 (09:29→17:23)
[2018-08-17] MEDS: NIFEDIPINE XL 60MG TAB PO SCH ×2 (09:29→21:28)
[2018-08-17] MEDS: ACETAMINOPHEN 650MG/20.3ML UDC PO PRN ×2 (09:29→19:38)
[2018-08-17] MEDS: LOSARTAN POTASSIUM 100 MG TABLET PO SCH (09:29)
[2018-08-17 11:57] VITALS: BP 130/72
[2018-08-17] MEDS: METOPROLOL TARTRATE 25MG TABLET PO SCH ×2 (13:18→21:28)
[2018-08-17 16:00] VITALS: BP 141/74
[2018-08-17 20:00] VITALS: BP 149/82
[2018-08-18] VITALS: BP 125/76
[2018-08-18 04:00] VITALS: BP 138/76
[2018-08-18] MEDS: LINEZOLID 600 MG PREMIX 300 ML IV SCH (05:02)
[2018-08-18] MEDS: HYDRALAZINE HCL 100MG TABLET PO SCH (06:16)
[2018-08-18] MEDS: PIPERACILLIN/TAZ 2.25G PREMIX 50 ML IV SCH (06:16)
[2018-08-18 06:49] LABS: BASOPHILS % 0.6 % (0.0-2.0); EOSINOPHILS % 2.3 % (0.0-5.0); HEMATOCRIT. 28.6 % (36.0-48.0); HEMOGLOBIN. 9.3 g/dL (12.0-16.0); LYMPHOCYTES % 17.7 % (20.0-50.0); MEAN CORPUSCULAR HEMOGLOBIN 31.3 pg (28.0-32.0); MEAN CORPUSCULAR VOLUME 96.2 fL (81.0-99.0); MEAN PLATELET VOLUME 9.7 fl (7.4-10.4); MONOCYTES % 11.1 % (2.0-8.0); NEUTROPHILS % 68.3 % (40.0-76.0); PLATELET 378 x1000/uL (130-400); RED BLOOD CELL COUNT 2.97 mill/uL (4.2-5.4); RED CELL DISTRIBUTION WIDTH 15.2 % (11.6-14.6)
[2018-08-18 08:00] VITALS: BP 139/72
[2018-08-18] MEDS: LOSARTAN POTASSIUM 100 MG TABLET PO SCH (10:02)
[2018-08-18] MEDS: LEVETIRACETAM 500MG TABLET PO SCH (10:02)
[2018-08-18] MEDS: METOPROLOL TARTRATE 25MG TABLET PO SCH (10:03)
[2018-08-18] MEDS: NIFEDIPINE XL 60MG TAB PO SCH (10:03)
[2018-08-18 10:53] VITALS: BP 135/76
== END 2018-08-18 12:34 | disposition home or self-care (01) | DRG 720 ==
LOC: ER 05:43 → 8WST 08:24 → EDBEDREQ 08:37 → EDBEDREQTM 08:37 → ENRESERV 12:35
PROVIDERS: ADMIT Internal Medicine; ATTEND Internal Medicine
PROC: 5A1D70Z Performance of Urinary Filtration, Intermittent, Less than 6 Hours Per Day (ICD-10-PCS; principal; 2018-08-16)
DX: A41.9 Sepsis, unspecified organism (principal); I13.2 Hypertensive heart and chronic kidney disease with heart failure and with stage 5 chronic kidney disease, or end stage renal disease; N18.6 End stage renal disease; R18.8 Other ascites; I50.9 Heart failure, unspecified; I16.0 Hypertensive urgency; D64.9 Anemia, unspecified; D47.3 Essential (hemorrhagic) thrombocythemia; Z90.81 Acquired absence of spleen; Z99.2 Dependence on renal dialysis; Z90.49 Acquired absence of other specified parts of digestive tract; Z88.6 Allergy status to analgesic agent; Z88.4 Allergy status to anesthetic agent; Z88.1 Allergy status to other antibiotic agents; Z79.899 Other long term (current) drug therapy; A04.9 Bacterial intestinal infection, unspecified
CPT/HCPCS: 36415; 71045; 74176; 76705; 80048; 82140; 83605; 84145; 84703; 87804; 93005; 93970; 96361; 96374; 96375; 99285; J0360; J1170; J2020; J2270; J2405; J2543; J3490; J7030; J7050

== ENCOUNTER 2018-10-06 19:59 | Emergency (ER) | payer MEDICAID ==
[~2018-10-06] VITALS: Ht 167.6 cm; Wt 65.0 kg
[~2018-10-06 19:59] MED LIST changes: -LEVO250T2 PO; -METR-218 PO
[2018-10-06 20:04] VITALS: BP 185/105
== END 2018-10-06 23:00 | disposition left against medical advice (07) ==
LOC: ER 19:59
DX: Z53.21 Procedure and treatment not carried out due to patient leaving prior to being seen by health care provider (principal)

== ENCOUNTER 2019-01-29 09:20 | Inpatient (IN) | payer MEDICAID ==
[~2019-01-29] VITALS: Ht 160 cm; Wt 52.2 kg
[~2019-01-29 09:20] MED LIST changes: -LOSA100T14 PO; +LOSA100T32 PO
[2019-01-29 10:28] LABS: BG BASE EXCESS 1.1 mmol/L (-2.0-2.0); BG CARBOXYHEMOGLOBIN 0.9 % (0.5-1.5); BG DEOXYHEMOGLOBIN 2.4 % (0.0-5.0); BG METHEMOGLOBIN 0.2 % (0.0-1.5); BG OXYGEN SATURATION 97.6 % (92.0-98.5); BG OXYHEMOGLOBIN 96.5 % (94.0-97.0); BG PCO2 42.2 mmHg (35.0-45.0); BG PH 7.407 (7.350-7.450); BG PO2 98.4 mmHg (75.0-100.0); BG SAMPLE SITE RIGHT BRACHIAL; BG VENT MODE ROOM AIR
[2019-01-29] MEDS ORDERED: HYDROCODONE/ACETAMINOPHEN 5/325MG TABLET PO ONE (10:45)
[2019-01-29 11:21] LABS: BASOPHILS % 0.6 % (0.0-2.0); EOSINOPHILS % 4.7 % (0.0-5.0); HEMATOCRIT. 41.2 % (36.0-48.0); HEMOGLOBIN. 13.7 g/dL (12.0-16.0); LYMPHOCYTES % 9.2 % (20.0-50.0); MEAN CORPUSCULAR HEMOGLOBIN 31.7 pg (28.0-32.0); MEAN CORPUSCULAR VOLUME 95.3 fL (81.0-99.0); MEAN PLATELET VOLUME 8.6 fl (7.4-10.4); MONOCYTES % 12.8 % (2.0-8.0); NEUTROPHILS % 72.7 % (40.0-76.0); PLATELET 394 x1000/uL (130-400); RED BLOOD CELL COUNT 4.33 mill/uL (4.2-5.4); RED CELL DISTRIBUTION WIDTH 18.6 % (11.6-14.6)
[2019-01-29 11:23] LABS: CHLORIDE 100 mEq/L (98-107)
[2019-01-29 11:24] LABS: INR 0.9; PARTIAL THROMBOPLASTIN TIME 29.5 sec (23.4-31.0); PROTHROMBIN TIME 9.4 sec (9.6-11.0)
[2019-01-29 11:26] LABS: HCG SCREEN NEGATIVE
[2019-01-29] MEDS ORDERED: LORAZEPAM 2MG/ML CPJ IV PRN (13:30)
[2019-01-29] MEDS ORDERED: MAGNESIUM/ALUMINUM HYDROXIDE/SIMETHICONE 30ML UDC PO PRN (13:30)
[2019-01-29] MEDS ORDERED: NA PHOS,M-B/NA PHOS,DI-BA ENEMA 118ML PR PRN (13:30)
[2019-01-29] MEDS ORDERED: DOCUSATE SODIUM 100MG CAPSULE PO PRN (13:30)
[2019-01-29] MEDS ORDERED: IPRATROPIUM/ALBUTEROL 0.5-3(2.5)MG/3ML NEB INH PRN (13:30)
[2019-01-29] MEDS ORDERED: CLONIDINE 0.1MG TABLET PO ONE (13:45)
[2019-01-29 15:00] VITALS: BP 175/101
[2019-01-29] MEDS ORDERED: LEVOFLOXACIN 500MG PREMIX 100 ML IV NR (16:00)
[2019-01-29 16:45] VITALS: BP 169/99
[2019-01-29] MEDS ORDERED: LOSA50TA41 MT (18:40)
[2019-01-29 20:00] VITALS: BP 167/109
[2019-01-29] MEDS: CLONIDINE 0.1MG TABLET PO PRN (20:54)
[2019-01-29] MEDS: HYDROCODONE/ACETAMINOPHEN 5/325MG TABLET PO PRN (22:58)
[2019-01-30] VITALS (8 sets, daily range): BP systolic 148–186; BP diastolic 49–118
[2019-01-30] MEDS: CLONIDINE 0.1MG TABLET PO PRN ×2 (06:04→18:49)
[2019-01-30 06:41] LABS: BASOPHILS % 0.6 % (0.0-2.0); HEMATOCRIT. 37.5 % (36.0-48.0); HEMOGLOBIN. 12.2 g/dL (12.0-16.0); LYMPHOCYTES % 13.6 % (20.0-50.0); MEAN CORPUSCULAR HEMOGLOBIN 31.5 pg (28.0-32.0); MEAN CORPUSCULAR VOLUME 96.7 fL (81.0-99.0); MEAN PLATELET VOLUME 8.9 fl (7.4-10.4); MONOCYTES % 14.6 % (2.0-8.0); NEUTROPHILS % 65.2 % (40.0-76.0); PLATELET 323 x1000/uL (130-400); RED BLOOD CELL COUNT 3.88 mill/uL (4.2-5.4); RED CELL DISTRIBUTION WIDTH 18.4 % (11.6-14.6)
[2019-01-30 07:13] LABS: CHLORIDE 103 mEq/L (98-107)
[2019-01-30 07:32] LABS: LDL CHOLESTEROL 78 mg/dL (5-100)
[2019-01-30 07:34] LABS: HDL CHOLESTEROL 81 mg/dL (40-59); T4 FREE 0.87 ng/dL (0.76-1.46)
[2019-01-30] MEDS: LOSARTAN POTASSIUM 25 MG TABLET PO SCH (09:00)
[2019-01-30] MEDS ORDERED: CLONIDINE 0.1MG TABLET PO SCH (09:00)
[2019-01-30] MEDS: NIFEDIPINE XL 90MG TAB PO SCH (09:00)
[2019-01-30] MEDS: HYDRALAZINE 20MG/ML VIAL IV PRN ×2 (09:09→20:23)
[2019-01-30] MEDS: GUAIFENESIN 200MG/10ML SUGAR FREE UDC PO PRN (10:00)
[2019-01-30] MEDS: ONDANSETRON HCL 4MG/2ML INJ IV PRN ×2 (10:09→20:19)
[2019-01-30] MEDS ORDERED: BACITRACIN 15GM TUBE TOP ONE (11:32)
[2019-01-30] MEDS ORDERED: THROMBIN (BOVINE) 5000 UNITS/VIAL TOP ONE (11:32)
[2019-01-30] MEDS ORDERED: HEPARIN SODIUM 1,000 UNIT/1ML VIAL IV ONE ×2 (11:33→15:01)
[2019-01-30] MEDS ORDERED: BACITRACIN 50,000 UNITS/VIAL ONE (11:33)
[2019-01-30] MEDS ORDERED: BUPIVACAINE HCL/PF 0.5% (5MG/ML) 10ML ONE (11:33)
[2019-01-30] MEDS ORDERED: NORMAL SALINE 0.9% 10 ML SYR ONE (11:33)
[2019-01-30] MEDS ORDERED: ROPIVACAINE HCL 10MG/ML 20 ML VIAL EPI ONE (13:23)
[2019-01-30] MEDS ORDERED: SUCCINYLCHOLINE CHLORIDE 200MG/10ML IV ONE (13:29)
[2019-01-30] MEDS ORDERED: ONDANSETRON HCL 4MG/2ML INJ ONE (13:29)
[2019-01-30] MEDS ORDERED: FENTANYL CITRATE/PF 50MCG/ML 2ML VIAL ONE ×2 (13:29→15:12)
[2019-01-30] MEDS ORDERED: PROPOFOL 200MG/20ML VIAL IV ONE (13:29)
[2019-01-30] MEDS ORDERED: MIDAZOLAM HCL 2 MG/2 ML VIAL ONE (13:29)
[2019-01-30] MEDS ORDERED: METOCLOPRAMIDE HCL 10MG/2ML VIAL ONE (13:29)
[2019-01-30] MEDS ORDERED: LIDOCAINE HCL/PF 1% 10 MG/ML 5ML VIAL ONE (13:29)
[2019-01-30] MEDS ORDERED: GLYCOPYRROLATE 0.2 MG/ML 2ML VIAL ONE (13:29)
[2019-01-30] MEDS: CLONIDINE 0.1MG TABLET PO SCH ×2 (13:30→22:14)
[2019-01-30] MEDS ORDERED: HYDRALAZINE 20MG/ML VIAL ONE ×2 (14:07→14:22)
[2019-01-30] MEDS ORDERED: PROTAMINE SULFATE 10MG/ML VIAL 5ML IV ONE (15:25)
[2019-01-30] MEDS ORDERED: SODIUM CHLORIDE 0.9% 1,000 ML IV ONE (15:47)
[2019-01-30] MEDS ORDERED: ONDANSETRON HCL 4MG/2ML INJ IV PRN (16:00)
[2019-01-30] MEDS ORDERED: HYDROCODONE/ACETAMINOPHEN 5/325MG TABLET PO PRN (16:00)
[2019-01-30] MEDS ORDERED: HYDROMORPHONE HCL/PF 2MG/ML CPJ IV PRN (16:00)
[2019-01-30] MEDS: HYDROCODONE/ACETAMINOPHEN 5/325MG TABLET PO PRN (18:21)
[2019-01-30] MEDS: MORPHINE SULFATE 2 MG/ML CPJ (NOT FOR IM USE) IV PRN (20:20)
[2019-01-31] VITALS (7 sets, daily range): BP systolic 126–170; BP diastolic 78–109
[2019-01-31] MEDS: MORPHINE SULFATE 2 MG/ML CPJ (NOT FOR IM USE) IV PRN ×4 (01:54→21:55)
[2019-01-31] MEDS: CLONIDINE 0.1MG TABLET PO SCH ×3 (06:02→21:52)
[2019-01-31 06:24] LABS: HEMATOCRIT. 37.3 % (36.0-48.0); HEMOGLOBIN. 11.8 g/dL (12.0-16.0); MEAN CORPUSCULAR HEMOGLOBIN 30.9 pg (28.0-32.0); MEAN CORPUSCULAR VOLUME 97.6 fL (81.0-99.0); MEAN PLATELET VOLUME 8.9 fl (7.4-10.4); PLATELET 303 x1000/uL (130-400); RED BLOOD CELL COUNT 3.82 mill/uL (4.2-5.4); RED CELL DISTRIBUTION WIDTH 18.2 % (11.6-14.6)
[2019-01-31] MEDS: LOSARTAN POTASSIUM 25 MG TABLET PO SCH (09:24)
[2019-01-31] MEDS: NIFEDIPINE XL 90MG TAB PO SCH (09:24)
[2019-01-31 10:38] LABS: PLATELET ESTIMATE NORMAL
[2019-01-31] MEDS ORDERED: SODIUM BICARBONATE 8.4% 1 MEQ/ML 50ML SYR IV NR (12:15)
[2019-01-31] MEDS ORDERED: DIPHENHYDRAMINE 50MG/ML VIAL IV NR (12:15)
[2019-01-31] MEDS ORDERED: INSULIN REGULAR (HUMULIN R) UD 100 UNITS/ML SYR IV NR (13:30)
[2019-01-31] MEDS ORDERED: CALCIUM CHLORIDE 1,000 MG in DEXT 5% WATER 90 ML IV NR (13:30)
[2019-01-31] MEDS ORDERED: DEXTROSE 50% WATER 50ML SYRINGE IV NR (13:30)
[2019-01-31] MEDS: LEVOFLOXACIN 250MG PREMIX 50 ML IV SCH (16:05)
[2019-01-31] MEDS: DIPHENHYDRAMINE 50MG/ML VIAL IV PRN (22:49)
[2019-02-01] VITALS: BP 140/93
[2019-02-01] MEDS: GUAIFENESIN 200MG/10ML SUGAR FREE UDC PO PRN (01:23)
[2019-02-01] MEDS: MORPHINE SULFATE 2 MG/ML CPJ (NOT FOR IM USE) IV PRN ×2 (02:06→15:34)
[2019-02-01 04:00] VITALS: BP 146/92
[2019-02-01] MEDS: CLONIDINE 0.1MG TABLET PO SCH ×3 (05:12→21:26)
[2019-02-01] MEDS: NIFEDIPINE XL 90MG TAB PO SCH (09:57)
[2019-02-01] MEDS: LOSARTAN POTASSIUM 25 MG TABLET PO SCH (09:57)
[2019-02-01] MEDS: DIPHENHYDRAMINE 50MG/ML VIAL IV PRN ×2 (11:07→15:35)
[2019-02-01 12:00] VITALS: BP_SYST 111; BP_SYST 143; BP_DIAS 72; BP_DIAS 96
[2019-02-01 12:35] LABS: HEMATOCRIT. 34.1 % (36.0-48.0); MEAN CORPUSCULAR HEMOGLOBIN 31.2 pg (28.0-32.0); MEAN CORPUSCULAR VOLUME 96.7 fL (81.0-99.0); MEAN PLATELET VOLUME 9.1 fl (7.4-10.4); PLATELET 299 x1000/uL (130-400); RED BLOOD CELL COUNT 3.53 mill/uL (4.2-5.4); RED CELL DISTRIBUTION WIDTH 17.6 % (11.6-14.6)
[2019-02-01 13:33] LABS: ATYPICAL LYMPHOCYTES 1
[2019-02-01 13:35] LABS: PLATELET ESTIMATE NORMAL
[2019-02-01 16:00] VITALS: BP 122/89
[2019-02-01 19:30] VITALS: BP 131/84
[2019-02-01 20:00] VITALS: BP 135/88
[2019-02-01] MEDS: ACETAMINOPHEN 325MG TABLET PO PRN (21:27)
[2019-02-01 22:19] LABS: BASOPHILS % 0.7 % (0.0-2.0); EOSINOPHILS % 5.9 % (0.0-5.0); HEMATOCRIT. 33.9 % (36.0-48.0); HEMOGLOBIN. 10.9 g/dL (12.0-16.0); LYMPHOCYTES % 12.8 % (20.0-50.0); MEAN CORPUSCULAR HEMOGLOBIN 30.9 pg (28.0-32.0); MEAN CORPUSCULAR VOLUME 95.6 fL (81.0-99.0); MEAN PLATELET VOLUME 9.9 fl (7.4-10.4); MONOCYTES % 14.7 % (2.0-8.0); NEUTROPHILS % 65.9 % (40.0-76.0); PLATELET 290 x1000/uL (130-400); RED BLOOD CELL COUNT 3.54 mill/uL (4.2-5.4); RED CELL DISTRIBUTION WIDTH 17.9 % (11.6-14.6)
[2019-02-02] VITALS: BP 142/79
[2019-02-02 02:59] VITALS: BP 146/85
[2019-02-02] MEDS: MORPHINE SULFATE 2 MG/ML CPJ (NOT FOR IM USE) IV PRN ×3 (03:01→20:21)
[2019-02-02 04:00] VITALS: BP 132/84
[2019-02-02] MEDS: CLONIDINE 0.1MG TABLET PO SCH ×3 (05:36→21:47)
[2019-02-02] MEDS: LOSARTAN POTASSIUM 25 MG TABLET PO SCH (09:00)
[2019-02-02] MEDS: NIFEDIPINE XL 90MG TAB PO SCH (09:00)
[2019-02-02 09:49] LABS: EOSINOPHILS % 5.5 % (0.0-5.0); HEMATOCRIT. 32.5 % (36.0-48.0); HEMOGLOBIN. 10.6 g/dL (12.0-16.0); LYMPHOCYTES % 10.8 % (20.0-50.0); MEAN CORPUSCULAR HEMOGLOBIN 31.3 pg (28.0-32.0); MEAN CORPUSCULAR VOLUME 95.8 fL (81.0-99.0); MEAN PLATELET VOLUME 9.6 fl (7.4-10.4); MONOCYTES % 13.8 % (2.0-8.0); NEUTROPHILS % 68.9 % (40.0-76.0); PLATELET 286 x1000/uL (130-400); RED BLOOD CELL COUNT 3.39 mill/uL (4.2-5.4); RED CELL DISTRIBUTION WIDTH 17.6 % (11.6-14.6)
[2019-02-02] MEDS ORDERED: HEPARIN SODIUM 1,000 UNIT/1ML VIAL IV NR (12:00)
[2019-02-02] MEDS: DIPHENHYDRAMINE 50MG/ML VIAL IV PRN ×2 (12:25→21:39)
[2019-02-02] MEDS: LEVOFLOXACIN 250MG PREMIX 50 ML IV SCH (18:23)
[2019-02-02] MEDS: ACETAMINOPHEN 325MG TABLET PO PRN (20:21)
[2019-02-02 20:49] VITALS: BP 159/98
[2019-02-03 00:30] VITALS: BP 176/115
[2019-02-03] MEDS: HYDRALAZINE 20MG/ML VIAL IV PRN (01:05)
[2019-02-03 04:00] VITALS: BP 132/81
[2019-02-03] MEDS: ONDANSETRON HCL 4MG/2ML INJ IV PRN (06:10)
[2019-02-03] MEDS: CLONIDINE 0.1MG TABLET PO SCH ×2 (07:08→14:05)
[2019-02-03 07:52] VITALS: BP 139/90
[2019-02-03] MEDS ORDERED: SODIUM CHLORIDE 0.45% 1,000 ML IV SCH (08:30)
[2019-02-03] MEDS: LOSARTAN POTASSIUM 25 MG TABLET PO SCH (09:35)
[2019-02-03] MEDS: NIFEDIPINE XL 90MG TAB PO SCH (09:36)
[2019-02-03 12:20] VITALS: BP 125/79
[2019-02-03 12:55] LABS: HEMATOCRIT 34.9 % (36.0-48.0); HEMOGLOBIN 11.5 g/dL (12.0-16.0); MEAN CORPUSCULAR VOLUME 93.9 fL (81.0-99.0); PLATELET 356 x1000/uL (130-400); RED BLOOD CELL COUNT 3.72 mill/uL (4.2-5.4); RED CELL DISTRIBUTION WIDTH 17.3 % (11.6-14.6)
[2019-02-03 15:14] VITALS: BP 139/90
== END 2019-02-03 15:32 | disposition home or self-care (01) | DRG 182 ==
LOC: ER 09:20 → 7WST 11:45 → EDBEDREQ 11:50 → ENRESERV 13:02 → 7WST 14:51
PROVIDERS: ADMIT Internal Medicine; ATTEND Internal Medicine
PROC: 03C80ZZ Extirpation of Matter from Left Brachial Artery, Open Approach (ICD-10-PCS; principal; 2019-01-30)
PROC: 05CF0ZZ Extirpation of Matter from Left Cephalic Vein, Open Approach (ICD-10-PCS; 2019-01-30)
PROC: 5A1D70Z Performance of Urinary Filtration, Intermittent, Less than 6 Hours Per Day (ICD-10-PCS; 2019-01-30)
PROC: 5A1D70Z Performance of Urinary Filtration, Intermittent, Less than 6 Hours Per Day (ICD-10-PCS; 2019-02-02)
DX: T82.868A Thrombosis due to vascular prosthetic devices, implants and grafts, initial encounter (principal); I13.2 Hypertensive heart and chronic kidney disease with heart failure and with stage 5 chronic kidney disease, or end stage renal disease; N18.6 End stage renal disease; R65.10 Systemic inflammatory response syndrome (SIRS) of non-infectious origin without acute organ dysfunction; E46 Unspecified protein-calorie malnutrition; E87.5 Hyperkalemia; I50.9 Heart failure, unspecified; T82.838A Hemorrhage due to vascular prosthetic devices, implants and grafts, initial encounter; R11.2 Nausea with vomiting, unspecified; D64.9 Anemia, unspecified; Y83.2 Surgical operation with anastomosis, bypass or graft as the cause of abnormal reaction of the patient, or of later complication, without mention of misadventure at the time of the procedure; Y92.89 Other specified places as the place of occurrence of the external cause; Z99.2 Dependence on renal dialysis; Z90.81 Acquired absence of spleen; Z90.49 Acquired absence of other specified parts of digestive tract; Z68.20 Body mass index [BMI] 20.0-20.9, adult; Z88.6 Allergy status to analgesic agent; Z88.4 Allergy status to anesthetic agent; Z88.1 Allergy status to other antibiotic agents; Z79.899 Other long term (current) drug therapy
CPT/HCPCS: 36415; 36600; 71045; 80048; 80061; 82375; 82805; 82962; 83735; 84100; 84132; 84439; 84443; 84484; 84703; 85027; 88304; 93005; 99285; C1884; J0330; J0360; J1200; J1644; J1815; J1956; J2250; J2270; J2405; J2704; J2720; J2765; J2795; J3010; J3490; J7060

== ENCOUNTER 2019-03-25 03:15 | Emergency (ER) | payer MEDICARE, MEDICAID ==
[~2019-03-25] VITALS: Ht 162.6 cm; Wt 56.0 kg
[~2019-03-25 03:15] MED LIST changes: -FOLI1TAB63 PO; -KEPP500 PO; -LOSA100T32 PO; +LOSA50TA41 MT; -METO-396 PO
[2019-03-25 05:05] VITALS: BP 150/103
== END 2019-03-25 05:05 | disposition home or self-care (01) ==
LOC: ER 03:15
DX: T82.868A Thrombosis due to vascular prosthetic devices, implants and grafts, initial encounter (principal); Y82.8 Other medical devices associated with adverse incidents; Y92.89 Other specified places as the place of occurrence of the external cause; I13.2 Hypertensive heart and chronic kidney disease with heart failure and with stage 5 chronic kidney disease, or end stage renal disease; N18.6 End stage renal disease; I50.9 Heart failure, unspecified; Z99.2 Dependence on renal dialysis
CPT/HCPCS: 99283

== ENCOUNTER 2019-04-24 07:55 | Day surgery (SDC) | payer MEDICARE, MEDICAID ==
[~2019-04-24] VITALS: Ht 162.6 cm; Wt 55.0 kg
[2019-04-24] MEDS ORDERED: SODIUM CHLORIDE 0.9% 500 ML IV ONE (09:15)
[2019-04-24] MEDS ORDERED: CEFAZOLIN SODIUM 1000MG/VIAL ONE (09:16)
[2019-04-24] MEDS ORDERED: SODIUM CHLORIDE 0.9% 10ML VIAL ONE (09:16)
[2019-04-24] MEDS ORDERED: PROPOFOL 200MG/20ML VIAL IV ONE (09:17)
[2019-04-24] MEDS ORDERED: MIDAZOLAM HCL 2 MG/2 ML VIAL ONE (09:17)
[2019-04-24 09:45] LABS: BASOPHILS % 1.1 % (0.0-2.0); EOSINOPHILS % 5.3 % (0.0-5.0); HEMATOCRIT. 33.8 % (36.0-48.0); LYMPHOCYTES % 9.8 % (20.0-50.0); MEAN CORPUSCULAR VOLUME 95.4 fL (81.0-99.0); MEAN PLATELET VOLUME 8.9 fl (7.4-10.4); MONOCYTES % 9.8 % (2.0-8.0); PLATELET 355 x1000/uL (130-400); RED BLOOD CELL COUNT 3.54 mill/uL (4.2-5.4); RED CELL DISTRIBUTION WIDTH 17.3 % (11.6-14.6)
[2019-04-24 09:49] LABS: HCG SCREEN NEGATIVE
[2019-04-24 10:07] LABS: INR 1.1; PROTHROMBIN TIME 10.8 sec (9.6-11.0)
[2019-04-24 10:13] LABS: PARTIAL THROMBOPLASTIN TIME 158.5 sec (23.4-31.0)
[2019-04-24] MEDS ORDERED: FENTANYL CITRATE/PF 50MCG/ML 2ML VIAL ONE (10:24)
[2019-04-24] MEDS ORDERED: ONDANSETRON HCL 4MG/2ML INJ ONE (10:53)
[2019-04-24] MEDS ORDERED: METOCLOPRAMIDE HCL 10MG/2ML VIAL ONE (10:53)
[2019-04-24] MEDS ORDERED: DEXAMETHASONE 4MG/ML 1ML VIAL ONE (10:58)
[2019-04-24] MEDS ORDERED: HYDRALAZINE 20MG/ML VIAL IV PRN (11:30)
[2019-04-24] MEDS ORDERED: HEPARIN SODIUM 1,000 UNIT/1ML VIAL IV ONE (11:30)
[2019-04-24] MEDS ORDERED: HYDROMORPHONE HCL/PF 2MG/ML CPJ IV PRN (11:30)
[2019-04-24] MEDS ORDERED: ONDANSETRON HCL 4MG/2ML INJ IV PRN (11:30)
[2019-04-24 12:08] VITALS: BP 170/98
[2019-04-24] MEDS ORDERED: CHOL100044 PO (12:58)
== END 2019-04-24 14:30 | disposition home or self-care (01) ==
LOC: OR 07:55
PROVIDERS: ATTEND Surgery Vascular Surgery
DX: T82.868A Thrombosis due to vascular prosthetic devices, implants and grafts, initial encounter (principal); I13.2 Hypertensive heart and chronic kidney disease with heart failure and with stage 5 chronic kidney disease, or end stage renal disease; N18.6 End stage renal disease; I50.9 Heart failure, unspecified; Z99.2 Dependence on renal dialysis; Z98.891 History of uterine scar from previous surgery; Z90.49 Acquired absence of other specified parts of digestive tract; Z79.899 Other long term (current) drug therapy; Z88.8 Allergy status to other drugs, medicaments and biological substances; Z98.890 Other specified postprocedural states; Z82.49 Family history of ischemic heart disease and other diseases of the circulatory system; Z72.89 Other problems related to lifestyle; Z82.5 Family history of asthma and other chronic lower respiratory diseases; Y83.8 Other surgical procedures as the cause of abnormal reaction of the patient, or of later complication, without mention of misadventure at the time of the procedure; Y92.89 Other specified places as the place of occurrence of the external cause
CPT/HCPCS: 10140; 36415; 36831; 80048; 84703; 85025; 85610; 85730; 93005; C1884; J0690; J1100; J1170; J1644; J2250; J2405; J2704; J2765; J3010; J7040

== ENCOUNTER 2019-08-07 05:19 | Day surgery (SDC) | payer MEDICARE, MEDICAID ==
[~2019-08-07] VITALS: Ht 162.6 cm; Wt 53.8 kg
[~2019-08-07 05:19] MED LIST changes: +CHOL100044 PO
[2019-08-07] MEDS ORDERED: SODIUM CHLORIDE 0.9% 500 ML IV ONE (06:45)
[2019-08-07 07:06] LABS: BASOPHILS % 1.6 % (0.0-2.0); EOSINOPHILS % 4.9 % (0.0-5.0); HEMATOCRIT. 31.6 % (36.0-48.0); HEMOGLOBIN. 10.5 g/dL (12.0-16.0); LYMPHOCYTES % 24.3 % (20.0-50.0); MEAN CORPUSCULAR HEMOGLOBIN 31.6 pg (28.0-32.0); MEAN PLATELET VOLUME 8.7 fl (7.4-10.4); MONOCYTES % 11.1 % (2.0-8.0); NEUTROPHILS % 58.1 % (40.0-76.0); PLATELET 425 x1000/uL (130-400); RED BLOOD CELL COUNT 3.32 mill/uL (4.2-5.4); RED CELL DISTRIBUTION WIDTH 18.9 % (11.6-14.6)
[2019-08-07] MEDS ORDERED: BACITRACIN 15GM TUBE TOP ONE (07:07)
[2019-08-07] MEDS ORDERED: LIDOCAINE HCL 1% 20ML VIAL (Pyxis) INJ ONE (07:07)
[2019-08-07] MEDS ORDERED: HEPARIN SODIUM 1,000 UNIT/1ML VIAL IV ONE (07:08)
[2019-08-07] MEDS ORDERED: THROMBIN (BOVINE) 5000 UNITS/VIAL TOP ONE (07:08)
[2019-08-07] MEDS ORDERED: NORMAL SALINE 0.9% 10 ML SYR ONE (07:08)
[2019-08-07] MEDS ORDERED: BUPIVACAINE HCL 0.5% (5MG/ML) 50ML ONE (07:09)
[2019-08-07] MEDS ORDERED: BACITRACIN 50,000 UNITS/VIAL ONE (07:09)
[2019-08-07 07:15] LABS: HCG SCREEN NEGATIVE
[2019-08-07] MEDS ORDERED: SUCCINYLCHOLINE CHLORIDE 200MG/10ML IV ONE (07:34)
[2019-08-07] MEDS ORDERED: PROPOFOL 200MG/20ML VIAL IV ONE (07:34)
[2019-08-07] MEDS ORDERED: MIDAZOLAM HCL 2 MG/2 ML VIAL ONE (07:34)
[2019-08-07] MEDS ORDERED: FENTANYL CITRATE/PF 50MCG/ML 2ML VIAL ONE ×2 (07:34→09:00)
[2019-08-07] MEDS ORDERED: ONDANSETRON HCL 4MG/2ML INJ ONE (07:34)
[2019-08-07] MEDS ORDERED: GLYCOPYRROLATE 0.2 MG/ML 2ML VIAL ONE (07:34)
[2019-08-07] MEDS ORDERED: METOCLOPRAMIDE HCL 10MG/2ML VIAL ONE (07:34)
[2019-08-07] MEDS ORDERED: SODIUM CHLORIDE 0.9% 1,000 ML IV ONE (09:52)
[2019-08-07] MEDS ORDERED: ONDANSETRON HCL 4MG/2ML INJ IV PRN (10:00)
[2019-08-07] MEDS ORDERED: MORPHINE SULFATE 2 MG/ML CPJ (NOT FOR IM USE) IV PRN (10:00)
[2019-08-07] MEDS ORDERED: HYDROCODONE/ACETAMINOPHEN 5/325MG TABLET PO PRN ×2 (10:15)
[2019-08-07] MEDS ORDERED: HEPARIN SODIUM 1,000 UNIT/1ML VIAL IV SCH (10:45)
[2019-08-07] MEDS: HYDROMORPHONE HCL/PF 2MG/ML CPJ IV PRN ×2 (10:53→11:15)
[2019-08-07 11:15] VITALS: BP 145/90
== END 2019-08-07 12:05 | disposition home or self-care (01) ==
LOC: OR 05:19
PROVIDERS: ATTEND Surgery Vascular Surgery
DX: I13.2 Hypertensive heart and chronic kidney disease with heart failure and with stage 5 chronic kidney disease, or end stage renal disease (principal); I50.9 Heart failure, unspecified; N18.6 End stage renal disease; D64.9 Anemia, unspecified; Z79.899 Other long term (current) drug therapy; Z99.2 Dependence on renal dialysis; Z98.890 Other specified postprocedural states; Z98.891 History of uterine scar from previous surgery; Z90.49 Acquired absence of other specified parts of digestive tract; Z82.49 Family history of ischemic heart disease and other diseases of the circulatory system
CPT/HCPCS: 36415; 36819; 80048; 84703; 85025; J0330; J1170; J1644; J2250; J2405; J2704; J2765; J3010; J3490; J7040